=== PATIENT | female | born 1985 | race African-American/Black ===

== ENCOUNTER 2022-05-19 12:26 | Outpatient (CLI) | payer OTHER | END 2022-05-19 12:27 | disposition home or self-care (01) | LOC: CSHULT 12:26 | PROVIDERS: ATTEND Nurse Practitioner Women's Health | DX: O09.32 Supervision of pregnancy with insufficient antenatal care, second trimester (principal); Z3A.22 22 weeks gestation of pregnancy | CPT/HCPCS: 76805 ==